=== PATIENT | female | born 1990 | race Caucasian/White ===

== ENCOUNTER 2024-12-18 21:48 | Emergency (ER) | payer BC ==
--- NOTE | 2024-12-18 22:40 | ED ---
General Adult HPI - General Source: patient, RN notes reviewed Mode of arrival: ambulatory Limitations: no limitations <Bertha Veloz - Last Filed: 12/19/24 06:41> <Kristin Daigle - Last Filed: 12/19/24 08:10> - General Chief complaint: Dizziness Stated complaint: dizzy - History of Present Illness Initial comments: Patient is a 34-year-old female with no known past medical history presenting for nausea and vomiting for 1 day after 6 days of cold-like symptoms. She states that this morning she also woke up with a left earache. She has had 6 episodes of nonbloody nonbilious emesis today. She was treating her cold-like symptoms throughout this week with DayQuil. She has been unable to tolerate much oral intake. She denies fever, chest pain, abdominal pain, dyspnea, hematemesis, hematuria/dysuria, melena/hematochezia. (Bertha Veloz) - Related Data Previous Rx's Medication Instructions Recorded Amoxicillin/Potassium Clav 1 each PO Q12HR #20 tab 11/14/15 [Augmentin 875-125 Tablet] Amoxicillin 875 mg PO Q12HR 6 Days #12 tablet 12/18/24 Allergies Allergy/AdvReac Type Severity Reaction Status Date / Time No Known Allergies Allergy Verified 12/18/24 22:03 Review of Systems ROS Other: All systems not noted in ROS Statement are negative. Constitutional: Denies: fever, chills Eyes: Denies: eye pain ENT: Reports: ear pain Respiratory: Denies: dyspnea Cardiovascular: Denies: chest pain, palpitations Gastrointestinal: Reports: nausea, vomiting. Denies: abdominal pain, diarrhea, constipation, hematemesis, melena, hematochezia Genitourinary: Denies: hematuria Skin: Denies: rash Neurological: Denies: headache <Bertha Veloz - Last Filed: 12/19/24 06:41> ROS Other: All systems not noted in ROS Statement are negative. <Kristin Daigle - Last Filed: 12/19/24 08:10> ROS Statement: Those systems with pertinent positive or pertinent negative responses have been documented in the HPI. Past Medical History Past Medical History: No Reported History History of Any Multi-Drug Resistant Organisms: None Reported Past Surgical History: No Surgical Hx Reported Additional Past Surgical History / Comment(s): throat tumor removed Past Psychological History: No Psychological Hx Reported Smoking Status: Never smoker Past Alcohol Use History: Rare Past Drug Use History: None Reported <Bertha Veloz - Last Filed: 12/19/24 06:41> General Exam Limitations: no limitations General appearance: alert, in no apparent distress Head exam: Present: atraumatic Eye exam: Present: normal appearance Expanded Ear exam: Present: normal external inspection, other (Blood in left canal) TM/Canal exam: Erythema: Right TM, Bulging: Right TM Throat exam: negative: tonsillar erythema, tonsillomegaly, tonsillar exudate Respiratory exam: Present: normal lung sounds bilaterally. Absent: respiratory distress, wheezes, rales, rhonchi, accessory muscle use Cardiovascular Exam: Present: regular rate, normal rhythm, normal heart sounds. Absent: systolic murmur, diastolic murmur GI/Abdominal exam: Present: soft, normal bowel sounds. Absent: distended, tenderness Extremities exam: Present: normal inspection, full ROM Neurological exam: Present: alert, oriented X3 Skin exam: Present: warm, dry, intact, normal color <Bertha Veloz - Last Filed: 12/19/24 06:41> Course Vital Signs 12/18/24 12/19/24 21:58 00:58 Temperature 98.0 F 98.1 F Pulse Rate 65 60 Respiratory 20 18 Rate Blood Pressure 124/91 128/79 O2 Sat by Pulse 99 98 Oximetry Medical Decision Making <Bertha Veloz - Last Filed: 12/19/24 06:41> <Kristin Daigle - Last Filed: 12/19/24 08:10> - Medical Decision Making Was pt. sent in by a medical professional or institution (, PA, NURSE ORTHO, urgent care, hospital, or prison...) When possible be specific @ -No Did you speak to anyone other than the patient for history (EMS, parent, family, police, friend...)? What history was obtained from this source @ -No Did you review nursing and triage notes (agree or disagree)? Why? @ -I reviewed and agree with nursing and triage notes Were old charts reviewed (outside hosp., previous admission, EMS record, old EKG, old radiological studies, urgent care reports/EKG's, prison records)? Report findings @ -No old charts were reviewed Differential Diagnosis? @ -Viral URI, otitis, sinusitis, pharyngitis, peritonsillar abscess, retrophar yngeal abscess, epiglottitis, this is not meant to be an all-inclusive list. EKG interpreted by me (3pts min.). @ -As above X-rays interpreted by me (1pt min.). @ -None done CT interpreted by me (1pt min.). @ -None done U/S interpreted by me (1pt. min.). @ -None done What testing was considered but not performed or refused? (CT, X-rays, U/S, labs)? Why? @ -None What meds were considered but not given or refused? Why? @ -None Did you discuss the management of the patient with other professionals (professionals i.e. , PA, NURSE ORTHO, lab, RT, psych nurse, social media content specialist, cda teacher, teacher, fisheries enforcement officer, case liner)? Give summary @ -No Was smoking cessation discussed for >3mins.? @ -No Was critical care preformed (if so, how long)? @ -No Were there social determinants of health that impacted care today? How? (Homelessness, low income, unemployed, alcoholism, drug addiction, transportation, low edu. Level, literacy, decrease access to med. care, half-way, rehab)? @ -No Was there de-escalation of care discussed even if they declined (Discuss DNR or withdrawal of care, Hospice)? DNR status @ -No What co-morbidities impacted this encounter? (DM, HTN, Smoking, COPD, CAD, Cancer, CVA, ARF, Chemo, Hep., AIDS, mental health diagnosis, sleep apnea, morbid obesity)? @ -None Was patient admitted / discharged? Hospital course, mention meds given and route, prescriptions, significant lab abnormalities, going to OR and other pertinent info. @ -Patient is a 34-year-old female with no known past medical history presenting for several days of cold-like symptoms and 1 day of ear pain and nausea/vomiti ng. On physical exam right tympanic membrane is erythematous and swollen, left tympanic membrane is clear but there is mild bleeding of the external canal. Patient was given meclizine and Zofran for her nausea. Ofloxacin 10 drops daily for 10 days, amoxicillin 875 mg twice daily for 7 days. Patient reported improvement with meclizine/Zofran and crackers. Patient was discharged home with return precautions discussed. Undiagnosed new problem with uncertain prognosis? @ -No Drug Therapy requiring intensive monitoring for toxicity (Heparin, Nitro, Insulin, Cardizem)? @ -No Were any procedures done? @ -No Diagnosis/symptom? @ -Acute otitis media, acute otitis externa, nausea and vomiting Acute, or Chronic, or Acute on Chronic? @ -Acute Uncomplicated (without systemic symptoms) or Complicated (systemic symptoms)? @ -Uncomplicated Side effects of treatment? @ -No Exacerbation, Progression, or Severe Exacerbation? @ -No Poses a threat to life or bodily function? How? (Chest pain, [place], MS, pneumonia, PE, COPD, DKA, ARF, appy, cholecystitis, CVA, Diverticulitis, Homicidal, Suicidal, threat to staff... and all critical care pts) @ -No (Bertha Veloz) I personally saw the patient and performed the critical portion of the service. I discussed the patient care with the resident physician. I directed management, care planning and final disposition of the patient. This includes, but not limited to, review of all lab work, radiological studies, EKG's, consultations, vital signs, and nursing notes. Critical care time of [0] minutes excluding separately billable procedures was spent in conjunction with critical care activities provided by the Resident and Attending simultaneously. I was present during [no procedures] for all critical portions of the procedure and as immediately available to furnish service during the entire procedure. (Kristin Daigle) Disposition Is patient prescribed a controlled substance at d/c from ED?: No <Bertha Veloz - Last Filed: 12/19/24 06:41> <Kristin Daigle - Last Filed: 12/19/24 08:10> Clinical Impression: Acute otitis externa, Acute otitis media, Nausea & vomiting Disposition: HOME SELF-CARE Condition: Stable Instructions (If sedation given, give patient instructions): Ear Infection (ED), Acute Nausea and Vomiting (ED) Additional Instructions: Every disease is a spectrum and a small chance still exists that a serious condition could develop, for this reason, please monitor yourself closely for new, changing or worsening symptoms, symptoms that persist beyond 48 hours, fever >48 hours, inability to tolerate/keep down fluids or your medications, inability to follow up with outpatient providers as instructed and should you experience these symptoms or should you have any further concerns for your wellbeing please return to the ED or call 911 immediately. Your pain can be treated with ibuprofen and acetaminophen. You can take up to 400-600 mg of ibuprofen (Advil, Motrin) 3 times daily (every 8 hours) but can also use lower doses if this relieves your pain. Some people prefer naproxen (Aleve, Naprosyn) which can be taken in doses of 500 mg up to twice a day. Do not take both of these medicines together, and do not combine either with ketorolac (Toradol), meloxicam (Mobic), or indomethacin (Tivorbex). Some people can develop stomach discomfort with higher doses of either ibuprofen or naproxen, if this develops decrease your dose or stop taking it. If you need to take this dose daily for more than a week, please schedule an appointment for re-evaluation with your PCP. Please take these medications with food. You can take up to 1000 mg of acetaminophen (Tylenol) every 6 hours. Be careful as this is included in some medicines like Nyquil, [place], Percocet, Vicodin, STANBACK, Goody's Powders, and Excedrin. You can also use lidocaine patches for topical pain. You can purchase 4% patches over the counter at most drug stores. These can be helpful for pain from your muscles or bones. PLEASE call your primary care physician as soon as possible to arrange / discuss plan for followup appointment. Appointment in the next 1-3 days is strongly encouraged if possible. PLEASE let us know here before you leave if there is anything further we can do to be of any assistance. Take care and feel Better! Prescriptions: Amoxicillin 875 mg PO Q12HR 6 Days #12 tablet Referrals: None,Stated [Primary Care Provider] - 1-2 days
[2024-12-18] MEDS: ONDANSETRON ODT 4 MG TAB PO STA (23:20)
[2024-12-18] MEDS: MECLIZINE 12.5 MG TAB PO STA (23:37)
[2024-12-18] MEDS: AMOXICILLIN 875 MG TAB PO STA (23:38)
[2024-12-18] MEDS: OFLOXACIN 0.3% OPHTH DROPS 5 ML BOTTLE LEFT EAR SCH (23:38)
[2024-12-19] MEDS: ONDANSETRON 4 MG ODT STARTER PACK 2 TAB BTL PO STA (00:55)
[2024-12-19 01:00] VITALS: BP 128/79; PULSE 60; RESP 18; TEMP 98.1
== END 2024-12-19 01:00 | disposition home or self-care (01) ==
LOC: EC 21:48
DX: H66.92 Otitis media, unspecified, left ear (principal); H60.92 Unspecified otitis externa, left ear; R11.2 Nausea with vomiting, unspecified
CPT/HCPCS: 99283; S0119